=== PATIENT | female | born 1975 | race Caucasian/White ===

== ENCOUNTER 2020-07-05 16:15 | Outpatient (REF) | payer OTHER, SELFPAY | END 2020-07-05 16:16 | disposition home or self-care (01) | LOC: HO.LAB 16:15 | PROVIDERS: Visit Provider Nurse Practitioner Family | DX: J40 Bronchitis, not specified as acute or chronic (principal); Z20.822 Contact with and (suspected) exposure to COVID-19 | CPT/HCPCS: 36415; U0003 ==

== ENCOUNTER 2021-06-07 18:11 | Outpatient (REF) | payer OTHER, SELFPAY ==
[2021-06-07 19:06] LABS: Influenza A PCR NEGATIVE (Negative); Influenza B PCR NEGATIVE (Negative); Resp Syncy Virus RNA Qual PCR POSITIVE (Negative); SARS COV2 PCR INHOUSE NEGATIVE (Negative)
== END 2021-06-07 18:12 | disposition home or self-care (01) ==
LOC: HO.LNP 18:11
PROVIDERS: Visit Provider Internal Medicine
DX: Z20.822 Contact with and (suspected) exposure to COVID-19 (principal); R43.9 Unspecified disturbances of smell and taste
CPT/HCPCS: 0241U

== ENCOUNTER 2022-02-20 15:54 | Outpatient (REF) | payer OTHER, SELFPAY ==
[2022-02-26 00:37] LABS: HPV mRNA E6/E7 rflx Not Detected (Not Detected)
== END 2022-02-20 15:55 | disposition home or self-care (01) ==
LOC: HO.LNP 15:54
PROVIDERS: Visit Provider Obstetrics & Gynecology
DX: Z01.419 Encounter for gynecological examination (general) (routine) without abnormal findings (principal); N93.9 Abnormal uterine and vaginal bleeding, unspecified
CPT/HCPCS: 87624; 88142

== ENCOUNTER 2022-02-20 16:04 | Outpatient (REF) | payer OTHER, SELFPAY ==
[2022-02-20 16:59] LABS: Hematocrit 40.2 % (37.0-47.0); Hemoglobin 13.8 g/dl (12.0-16.0); Mean Corpuscular HGB Conc 34.3 g/dl (31.0-35.0); Mean Corpuscular Hemoglobin 30.5 pg (27.0-33.0); Mean Corpuscular Volume 88.7 fL (80.0-98.0); Mean Platelet Volume 10.1 fL (9.4-12.3); Platelet Count 285 X10*3/uL (160-400); Red Blood Count 4.53 X10*6/uL (4.20-5.50); Red Cell Distribution Width 12.9 % (11.0-16.0); White Blood Count 7.9 X10*3/uL (4.8-10.8)
[2022-02-20 17:47] LABS: HCG Quantitative < 2 mIU/mL; TSH reflex Free T4 1.25 uIU/mL (0.32-4.0)
[2022-02-21 11:48] LABS: CT PCR NOT DETECTED (Not Detect.); NG PCR NOT DETECTED (Not Detect.)
== END 2022-02-20 16:05 | disposition home or self-care (01) ==
LOC: HO.LAB 16:04
PROVIDERS: PCP Internal Medicine; Visit Provider Obstetrics & Gynecology
DX: Z01.419 Encounter for gynecological examination (general) (routine) without abnormal findings (principal); N93.9 Abnormal uterine and vaginal bleeding, unspecified; Z11.3 Encounter for screening for infections with a predominantly sexual mode of transmission; Z11.51 Encounter for screening for human papillomavirus (HPV)
CPT/HCPCS: 84443; 84702; 85027; 87491; 87591

== ENCOUNTER 2022-03-25 15:05 | Outpatient (REF) | payer OTHER, SELFPAY | END 2022-03-25 15:06 | disposition home or self-care (01) | LOC: HO.LNP 15:05 | PROVIDERS: PCP Internal Medicine; Visit Provider Obstetrics & Gynecology | DX: Z32.02 Encounter for pregnancy test, result negative (principal); N39.3 Stress incontinence (female) (male) | CPT/HCPCS: 58100; 81025; 88305 ==

== ENCOUNTER 2022-03-26 09:24 | Outpatient (REF) | payer OTHER, SELFPAY ==
--- NOTE | ~2022-03-26 | MM_ITS ---
EXAMINATION: MM SCREENING DIGITAL BREAST TOMOSYNTHESIS, BILATERAL CLINICAL INFORMATION: Screening. Asymptomatic. The lifetime risk of breast cancer based on the Tyrer-Cuzick Model is 15%. COMPARISON: Mammography: 08/26/2018, 06/11/2016, 01/12/2014 TECHNIQUE: Digital breast tomosynthesis is performed in both the craniocaudal and mediolateral oblique views along with computer-aided detection (CAD). Synthesized 2D images are generated from the tomosynthesis. FINDINGS: There are scattered areas of fibroglandular density (ACR BI-RADS breast composition Category b). There are no significant masses, abnormal calcifications, or other abnormalities. Parenchymal pattern is similar to prior studies. There is no developing density or architectural abnormality. The axilla and skin contours are unremarkable. No significant changes. MM/MM tomosynthesis screening BI IMPRESSION: No mammographic evidence of malignancy. ASSESSMENT: BI-RADS 1: Negative RECOMMENDATION: Routine annual mammography screening. This patient's information was entered into a reminder system with a target due date for their next mammogram.
== END 2022-03-26 09:25 | disposition home or self-care (01) ==
LOC: HO.MAMMO 09:24
PROVIDERS: Visit Provider Obstetrics & Gynecology
DX: Z12.31 Encounter for screening mammogram for malignant neoplasm of breast (principal)
CPT/HCPCS: 77063; 77067

== ENCOUNTER 2022-04-17 15:34 | Outpatient (REF) | payer OTHER, SELFPAY ==
--- NOTE | ~2022-04-17 | US_ITS ---
EXAMINATION: US PELVIS COMPLETE CLINICAL INFORMATION: Abnormal bleeding COMPARISON: None TECHNIQUE: Transabdominal and endovaginal imaging was performed. FINDINGS: The uterus is of normal size and echogenicity measuring 7.7 x 4.2 x 3.9 cm. A regular homogeneous endometrium is identified measuring 0.9 cm. Both ovaries are of normal size and echogenicity. The right measures 2.2 x 1.3 x 2.0 cm for a volume of 2.9 mL. The left measures 2.8 x 1.3 x 1.3 cm for a volume of 0.2 mL. Tiny punctate echogenic focus in the periphery of the right ovary may reflect a tiny calcification which could be vascular in nature. There is no pelvic free fluid. US/US pelvic and transvaginal IMPRESSION: Tiny punctate echogenic focus in the periphery of the right ovary may reflect a tiny calcification which could be vascular in nature. Otherwise unremarkable pelvic ultrasound.
== END 2022-04-17 15:35 | disposition home or self-care (01) ==
LOC: HO.US 15:34
PROVIDERS: Visit Provider Obstetrics & Gynecology
DX: N93.9 Abnormal uterine and vaginal bleeding, unspecified (principal)
CPT/HCPCS: 76830; 76856

== ENCOUNTER 2022-09-22 10:04 | Outpatient (REF) | payer OTHER, SELFPAY ==
--- NOTE | ~2022-09-22 | XR_ITS ---
EXAMINATION: XR ANKLE, RIGHT CLINICAL INFORMATION: Right ankle pain COMPARISON: None available. TECHNIQUE: AP, lateral, and mortise views of the right ankle. FINDINGS: The bones and soft tissues are normal. No fracture. Alignment is anatomic. Joint spaces are maintained. No joint effusion. XR/XR ankle RT min 3V IMPRESSION: Unremarkable right ankle
== END 2022-09-22 10:05 | disposition home or self-care (01) ==
LOC: HO.HOSX 10:04
PROVIDERS: Visit Provider Physician Assistant
DX: M25.571 Pain in right ankle and joints of right foot (principal)
CPT/HCPCS: 73610; 99202

== ENCOUNTER 2023-02-26 15:11 | Outpatient (REF) | payer OTHER, SELFPAY ==
[2023-02-27 16:02] LABS: BV Int Neg Control Negative (Negative); BV Int Pos Control Positive (Positive)
== END 2023-02-26 15:12 | disposition home or self-care (01) ==
LOC: HO.LNP 15:11
PROVIDERS: Visit Provider Obstetrics & Gynecology
DX: Z01.419 Encounter for gynecological examination (general) (routine) without abnormal findings (principal); N39.41 Urge incontinence; Z20.2 Contact with and (suspected) exposure to infections with a predominantly sexual mode of transmission
CPT/HCPCS: 87480; 87510; 87660

== ENCOUNTER 2023-02-26 15:11 | Outpatient (AMB) | payer OTHER, SELFPAY ==
--- NOTE | 2023-02-26 15:12 | MHC.OFFVIS ---
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: No Information Interpreted: non-clinical & clinical Sustainability Executive Director: Sustainability Executive Director Present (Chaya) Allergies acetaminophen [Tylenol-Codeine #3] Allergy (Unknown, Verified 02/26/23 15:15) vomiting codeine [Tylenol-Codeine #3] Allergy (Unknown, Verified 02/26/23 15:15) vomiting oxycodone [OXYCODONE] Adverse Reaction (Intermediate, Verified 02/26/23 15:15) VOMITING, feeling loopy From Tylenol-Codeine #3 Adverse Reaction (Intermediate, Uncoded 02/26/23 15:15) VOMITING Is last menstrual period known: Yes Last menstrual period: 02/06/23 Post menopausal: No HPI HPI Comments History of Present Illness Details Presenting for annual exam. Complaining of leakage of urine upon coughing, sneezing and lifting heavy object associated with urgency and urge incontinence . The patient is interested in STD screen Last Pap/HPV was negative in 03/13 Last Mammogram was BI-RADS 1 in 04/12 No previous screening colonoscopy PFSH Surgical History H/O bilateral salpingectomy Hx of section Family History Mother Asthma Father Fibromyalgia Prostate cancer Maternal Aunt Breast cancer Social History Household Members: None Housing: House Alcohol intake: current Alcohol intake frequency: holidays/special occasions only Patient Tobacco Use Status: Former Tobacco user e-Cigarette/Vaping Use: Never Used Current occupational status: employed Current occupation: [employer] Sexual orientation: Straight/Heterosexual Gender identity: Female Cognitive needs: No Hearing needs: No Vision needs: Yes Female Reproductive History Menstrual Age of Menarche: 15 Duration of menses: 6-7 days Date of last menstrual period: 02/06/23 control method: permanent sterilization Total pregnancies: 6 Full term: 4 Number of Living Children: 4 Ab induced: 2 Date of last pap smear: 02/21/22 Date of Mammogram: 03/26/22 Review of Systems Const All systems reviewed & are unremarkable except as noted in HPI and below Card Reports as per HPI Resp Reports as per HPI GI Reports as per HPI and Reports no additional complaints Reports as per HPI Physical Exam Vital Signs: Last Vital Signs BP 112/74 02/26/23 15:13 BMI result Body Mass Index 29.4 Const General: cooperative, healthy appearing and comfortable Chest Chest palpation & inspection: normal inspection of the chest and normal palpation of entire chest wall Breast/axilla inspection: normal inspection of the breasts and normal inspection of the axillae Breast/axilla palpation: normal palpation of the breasts, normal palpation of the axillae and no axillary lymphadenopathy Resp Effort & Inspection: normal respiratory effort Auscultation: clear to auscultation bilaterally Percussion: percussion normal Cardio Palpation: normal PMI Rate: regular rate Rhythm: regular rhythm Heart sounds: no murmurs and no rubs Peripheral pulses: Peripheral pulses 2+ throughout GI Inspection: Yes normal to inspection Palpation (GI): Soft to palpation, nontender, no guarding, not rigid and No hepatosplenomegaly present Percussion: Yes normal to percussion Auscultation: normal bowel sounds Rectal Exam - Female: deferred General: Yes bladder normal to palpation External Female Exam: No lesion Speculum Exam - Vagina: normal appearance of the vagina, normal palpation, normal vaginal discharge and not erythematous Speculum Exam - Cervix: normal appearance of the cervix and normal palpation Bimanual exam- vagina & uterus: normal bimanual exam, normal palpation, uterine size normal, bladder normal to palpation, consistency normal and normal palpation Bimanual Exam- Adnexa, other: normal adnexae, no masses and no tenderness Assessment & Plan Assessment & Plan (1) Well woman exam: Code(s): Z01.419 - Encounter for gynecological examination (general) (routine) without abnormal findings Plan: Cotesting not indicated this. Mammogram ordered for 04/13. Counseled the patient about the recommended dietary allowance of 1000 mg of Calcium & 600 IU of vitamin D. The patient was instructed to perform monthly self-breast exams and to schedule an annual exam in a year; All questions answered and the patient verbalized understanding. Instructed the patient to schedule annual exam in a year (2) Urine incontinence: Code(s): R32 - Unspecified urinary incontinence Plan: Discussed with the patient the different types of Urine incontinence, stress urinary incontinence, intrinsic sphincter deficiency, overactive bladder and its work up. We will refer to Urology. All questions answered, the patient verbalized understanding. (3) Screen for STD (sexually transmitted disease): Code(s): Z11.3 - Encounter for screening for infections with a predominantly sexual mode of transmission Plan: STD screening tests done includes: BV panel for trichomonas, GC/CT will send patient for serology std screening for HIV, RPR, Hep b s Ag, HepC Ab. Instructions given the patient to schedule a follow-up appointment for repeat serology screen in 6 months for possible false negatives. Orders: Orders Bacterial Vaginosis Panel Today Z01.419 - Encounter for gynecological examination (general) (routine) without abnormal findings Hepatitis B Surface Antigen Today Z20.2 - Contact with and (suspected) exposure to infections with a predominantly sexual mode of transmission Hepatitis C Antibody Today Z20.2 - Contact with and (suspected) exposure to infections with a predominantly sexual mode of transmission HIV Ab/Ag Today Z20.2 - Contact with and (suspected) exposure to infections with a predominantly sexual mode of transmission MM screening mammo BI Today Z12.31 - Encounter for screening mammogram for malignant neoplasm of breast CT NG by PCR Today Z01.419 - Encounter for gynecological examination (general) (routine) without abnormal findings Syphilis Screen Today Z20.2 - Contact with and (suspected) exposure to infections with a predominantly sexual mode of transmission Referrals Gastroenterology Referral Z12.11 - Encounter for screening for malignant neoplasm of colon Urology Referral R32 - Unspecified urinary incontinence Coding Level of Care Code Est Pt Prev Care 40-64y([id number]) Diagnoses Well woman exam Z01.419 Urine incontinence R32 Screen for STD (sexually transmitted disease) Z11.3
[2023-02-26 15:13] VITALS: BP 112/74; BMI 29.4
== END 2023-02-26 15:57 | disposition home or self-care (01) ==
PROVIDERS: Visit Provider Obstetrics & Gynecology
DX: Z01.419 Encounter for gynecological examination (general) (routine) without abnormal findings (principal); R32 Unspecified urinary incontinence; Z11.3 Encounter for screening for infections with a predominantly sexual mode of transmission
CPT/HCPCS: 99396

== ENCOUNTER 2023-02-26 16:10 | Outpatient (REF) | payer OTHER, SELFPAY ==
[2023-02-27 02:23] LABS: CT PCR NOT DETECTED (Not Detect.); NG PCR NOT DETECTED (Not Detect.)
[2023-02-27 04:32] LABS: Syphilis Screen Nonreactive (Nonreactive)
[2023-02-27 04:56] LABS: HBsAGNum1 0.35 S/CO (0.00-0.99); HIV AB/AG Nonreactive (Nonreactive); HIV Num 1 0.05 S/CO (0.00-0.99); Hepatitis B Surface Antigen Negative (Negative); ~HepC Num1 0.17 S/CO (0.00-0.79); ~Hepatitis C Antibody Nonreactive (Nonreactive)
== END 2023-02-26 16:11 | disposition home or self-care (01) ==
LOC: HO.LAB 16:10
PROVIDERS: Visit Provider Obstetrics & Gynecology
DX: Z01.419 Encounter for gynecological examination (general) (routine) without abnormal findings (principal); Z20.2 Contact with and (suspected) exposure to infections with a predominantly sexual mode of transmission
CPT/HCPCS: 0353U; 86780; 86803; 87340; 87389

== ENCOUNTER 2023-03-23 07:01 | Emergency (ER) | payer OTHER, SELFPAY ==
--- NOTE | ~2023-03-23 | CT_ITS ---
EXAMINATION: CT HEAD WITHOUT CONTRAST CLINICAL INFORMATION: Headache and sinus congestion. COMPARISON: 01/08/2015 TECHNIQUE: Contiguous axial imaging was performed from the skull base to vertex without intravenous administration of contrast. This CT examination was performed using dose optimization techniques as appropriate, variously including the following: *Automated exposure control *Adjustment of mA and/or kV according to patient size (this includes techniques or standardized protocols for targeted exams where dose is matched to indication/reason for exam; i.e. extremities or head) *Use of iterative reconstruction technique DLP: 667 mGy-cm FINDINGS: There is no evidence of acute intracranial hemorrhage or edematous territorial infarction. Madrigal-white matter differentiation is preserved. The ventricles are normal in morphology and size. No evidence for obstructive hydrocephalus. No mass effect or midline shift. No extra-axial fluid collections. The mastoid air cells and visualized paranasal sinuses are clear. CT/CT head/brain wo IV con IMPRESSION: No acute intracranial pathology.
[2023-03-23 07:46] VITALS: BP 140/76; PULSE 81; RESP 15; TEMP 36.4; O2SAT 98; BMI 30.1
--- NOTE | 2023-03-23 07:56 | ECG_ITS ---
Test Reason : r side chest disc Blood Pressure : / mmHG Vent. Rate : 076 BPM Atrial Rate : 076 BPM P-R Int : 140 ms QRS Dur : 074 ms QT Int : 380 ms P-R-T Axes : 060 034 018 degrees QTc Int : 427 ms Normal sinus rhythm Normal ECG No previous ECGs available Referred By: Generic ED Physician Electronically Signed By:BRYCE HENDERSON
[2023-03-23 08:27] LABS: MANUAL DIFF FLAG NO
[2023-03-23 08:30] LABS: Basophils Absolute Auto 0.1 X10*3/uL (0.0-0.2); Basophils Percent Auto 0.6 % (0-2); Eosinophils Absolute Auto 0.5 X10*3/uL (0.0-0.4); Eosinophils Percent Auto 5.5 % (0-4); Hematocrit 42.9 % (37.0-47.0); Hemoglobin 14.6 g/dl (12.0-16.0); Imm Gran Abs Auto 0.01 X10*3/uL (0.00-0.03); Imm Gran Pct Auto 0.1 % (0.0-0.4); Lymphocytes Absolute Auto 2.6 X10*3/uL (1.2-4.9); Lymphocytes Percent Auto 29.2 % (20-40); Mean Corpuscular Hemoglobin 30.2 pg (27.0-33.0); Mean Corpuscular Volume 88.6 fL (80.0-98.0); Mean Platelet Volume 9.6 fL (9.4-12.3); Monocytes Absolute Auto 0.7 X10*3/uL (0.1-1.2); Monocytes Percent Auto 7.3 % (2-11); Neutrophils Absolute Auto 5.2 x10*3/uL (2.0-8.3); Neutrophils Percent Auto 57.3 % (45-73); Platelet Count 309 X10*3/uL (160-400); Red Blood Count 4.84 X10*6/uL (4.20-5.50); Red Cell Distribution Width 12.8 % (11.0-16.0)
[2023-03-23 08:42] LABS: Anion Gap 13 (12-20); Blood Urea Nitrogen 17 mg/dL (9-16); Calcium 9.9 mg/dL (8.4-10.2); Carbon Dioxide 25 mmol/L (22-29); Chloride 106 mmol/L (96-108); Creatinine Clr Calc Pharmacy 102.6; Estimated Glomerular Filt Rate > 60; Glucose Random 105 mg/dL (60-115); IDNOW Serial# 08D9AD1C; Sodium 140 mmol/L (135-145); Strep A Nucleic Acid Negative (Negative)
[2023-03-23 08:46] LABS: COVID-19 Test Negative (Negative); IDNOW Serial# 55D5AD1C
[2023-03-23 08:51] LABS: IDNOW Serial# BCCEAD1C; Influenza A Negative (Negative); Influenza B2 Negative (Negative)
[2023-03-23 08:52] LABS: Troponin-I High Sensitivity < 2.7 ng/L (<3.5-17.0)
--- NOTE | 2023-03-23 09:03 | PC.NURSE ---
Patient reports x 1 month ago went to urgent care because she lost her voice and her ears hurt. Reports was told it was allergies and was given zyrtec and flonase. Reports bilteral lymph nodes hurt when she pushes on the. Reports new onset headache at 3:30am on the left side with left eye watering. Denies sob or chest pain
--- NOTE | 2023-03-23 09:13 | ED_ITS ---
HPI - General Adult General Chief complaint: General Medical Stated complaint: Headache L side Time Seen by Provider: 03/23/23 08:48 Source: patient Mode of arrival: ambulatory Limitations: no limitations History of Present Illness HPI narrative: Patient with sinus congestion for 1 month had been on flonase, now increasing ear pain and left sided headache Onset (ago): month(s) Severity: moderate Pain Consistency: constant Related Data Home Medications Medication Instructions Recorded Confirmed calcium carbonate 500 mg calcium 500 mg PO DAILY 02/20/22 08/19/22 (1,250 mg) chewable tablet (Calcium 500) cholecalciferol (vitamin D3) 25 25 mcg PO DAILY 02/20/22 08/19/22 mcg (1,000 unit) capsule Previous Rx's Medication Instructions Recorded fluticasone propionate 50 2 spray intranasal DAILY #16 grams 03/23/23 mcg/actuation nasal spray,suspension (Flonase Allergy Relief) naproxen 500 mg tablet (Naprosyn) 500 mg PO BID #20 tabs 03/23/23 Allergies Allergy/AdvReac Type Severity Reaction Status Date / Time acetaminophen Allergy Unknown vomiting Verified 02/26/23 15:15 [Tylenol-Codeine #3] codeine [Tylenol-Codeine #3] Allergy Unknown vomiting Verified 02/26/23 15:15 oxycodone [OXYCODONE] AdvReac Intermediate VOMITING, Verified 02/26/23 15:15 feeling loopy From Tylenol-Codeine #3 AdvReac Intermediate VOMITING Uncoded 02/26/23 15:15 Review of Systems 2 Review of Systems: Yes all other systems are reviewed and are negative Neurologic: Denies Sensory deficit (Neuro) PMFSH Past Medical History Surgical History H/O bilateral salpingectomy Hx of section Family History Family History Mother Asthma Father Fibromyalgia Prostate cancer Maternal Aunt Breast cancer Social History Social History Household Members: None Housing: House Alcohol intake: never Patient Tobacco Use Status: Former Tobacco user Smoked in Last 30 Days: No e-Cigarette/Vaping Use: Never Used Use of substances other than those prescribed or required for medical reasons: No Advance Directives: No Advance Directives Information Provided: Yes Current occupational status: employed Current occupation: [employer] Sexual orientation: Straight/Heterosexual Gender identity: Female Cognitive needs: No Hearing needs: No Vision needs: Yes Physical Exam ED Vital Signs: Vital Signs - 24 hr 03/23/23 07:46 Temperature 97.6 F Pulse Rate 81 Respiratory Rate 15 Blood Pressure 140/76 H Pulse Oximetry 98 Oxygen Delivery Method Room Air BMI result Body Mass Index 30.1 Const General: healthy appearing Nutritional Appearance: average body habitus Orientation/consciousness: oriented to person and patient oriented x3 Limitations: no limitations HENMT Other: bilateral TM effusions no erythema, no bulging Head: Yes normal to inspection General nose exam: Normal external nose present Mouth: Normal oral and palatal mucosa present and oropharynx normal Throat: Yes posterior oropharynx normal Eyes General: appearance normal, both eyes and all related structures Neck Neck: Yes normal visual inspection Chest Chest palpation & inspection: normal inspection of the chest Resp Auscultation: clear to auscultation bilaterally Cardio Jugular venous distension: no JVD Rate: regular rate Rhythm: regular rhythm Heart sounds: S1 normal heart sound present and S2 normal heart sound present GI Inspection: Yes normal to inspection Palpation (GI): Soft to palpation, nontender and No hepatosplenomegaly present Auscultation: normal bowel sounds General: Yes no CVA tenderness Back/Spine/Pelvis Back: no CVA tenderness Skin General skin exam: no rashes or lesions noted Neuro General: oriented to person and patient oriented x3 Cranial nerves: Yes CN's II-XII intact bilaterally Motor exam (neuro): 5/5 motor strength present throughout Sensory Exam: No Sensory deficit (Neuro) Extrem General: Yes normal to inspection Psych Appearance: grossly normal Course Reevaluation(s) Reevaluation #1: Head CT negative, no sinus fluid, will dc on continued flonase as both Tms with effusions Time: 10:45 Medications Administered Discontinued Medications Generic Name Dose Route Start Last Admin Trade Name Leroyq PRN Reason Stop Dose Admin Ketorolac Tromethamine 60 mg 03/23/23 09:56 03/23/23 10:00 Ketorolac Tromethamine 60 Mg/2 Ml Vial IM 03/23/23 09:57 60 mg ONCE ONE Administration Ondansetron HCl 4 mg 03/23/23 09:56 10/02/23 09:59 Ondansetron Odt 4 Mg Tab.Adrianadis TRANSLINGU 03/23/23 09:57 4 mg ONCE ONE Administration Medical Decision Making Differential Diagnosis Differential Diagnoses: The differential diagnosis associated with the presentation includes (CVA, Brain tumor, Migrain, sinusitis, allergic rhinitis) Admission/Observation Consideration of admission/observation: Escalation of care including admission/observation considered (upon arrival patient considered for admission) Lab Data 03/23/23 08:21 03/23/23 08:21 Labs: Lab Results 03/23/23 Range/Units 08:21 WBC 9.0 (4.8-10.8) X10*3/uL RBC 4.84 (4.20-5.50) X10*6/uL Hgb 14.6 (12.0-16.0) g/dl Hct 42.9 (37.0-47.0) % MCV 88.6 (80.0-98.0) fL MCH 30.2 (27.0-33.0) pg MCHC 34.0 (31.0-35.0) g/dl RDW 12.8 (11.0-16.0) % Plt Count 309 (160-400) X10*3/uL MPV 9.6 (9.4-12.3) fL Immature Gran % (Auto) 0.1 (0.0-0.4) % Neut % (Auto) 57.3 (45-73) % Lymph % (Auto) 29.2 (20-40) % Wilkin % (Auto) 7.3 (2-11) % Eos % (Auto) 5.5 H (0-4) % Baso % (Auto) 0.6 (0-2) % Lymph # (Auto) 2.6 (1.2-4.9) X10*3/uL Wilkin # (Auto) 0.7 (0.1-1.2) X10*3/uL Eos # (Auto) 0.5 H (0.0-0.4) X10*3/uL Baso # (Auto) 0.1 (0.0-0.2) X10*3/uL Abs Immat Gran (auto) 0.01 (0.00-0.03) X10*3/uL Absolute Neuts (auto) 5.2 (2.0-8.3) x10*3/uL Absolute Nucleated RBC 0.000 (0.0-0.012) X10*3/uL Nucleated RBC % (auto) 0.0 (0.0-0.2) /100WBC Sodium 140 (135-145) mmol/L Potassium 4.0 (3.3-5.1) mmol/L Chloride 106 (96-108) mmol/L Carbon Dioxide 25 (22-29) mmol/L Anion Gap 13 (12-20) BUN 17 H (9-16) mg/dL Creatinine 0.82 (0.5-1.4) mg/dL Estim Creat Clear Calc 102.6 Estimated GFR > 60 Random Glucose 105 (60-115) mg/dL Calcium 9.9 (8.4-10.2) mg/dL Troponin I High Sens < 2.7 (<3.5-17.0) ng/L COVID-19 (JOSÉ MIGUEL) Negative (Negative) COVID-19 Clin Com See Note Influenza Type A ([facility]) Negative (Negative) Influenza Type B ([place]) Negative (Negative) Influenza A & B Note See Note S. pyogenes GrpA [place] Negative (Negative) Independent Interpretation I performed an independent interpretation of an: CT Scan (no mass, no bleed, no sinus disease) Independent Historian Clinical information obtained from an independent historian. History obtained from or confirmed by: Parent (father) Prescription Management I considered prescription management with: Antibiotic (no evidence of acute sinusitis) Discharge Plan Discharge Clinical Impression: Headache Qualifiers: Headache type: unspecified Headache chronicity pattern: acute headache I ntractability: not intractable Qualified Code(s): R51.9 - Headache, unspecified Mucoid otitis media with effusion Qualifiers: Laterality: bilateral Qualified Code(s): H65.93 - Unspecified nonsuppurative otitis media, bilateral Patient Disposition: Home, Self-Care Instructions: Acute Headache (DC), Serous Otitis Media (ED) Prescriptions: New naproxen [Naprosyn] 500 mg tablet 500 mg PO BID Qty: 20 0RF fluticasone propionate [Flonase Allergy Relief] 50 mcg/actuation spray,suspension 2 spray intranasal DAILY Qty: 16 0RF Rx Instructions: administer into each nostril No Action cholecalciferol (vitamin D3) 25 mcg (1,000 unit) capsule 25 mcg PO DAILY calcium carbonate [Calcium 500] 500 mg calcium (1,250 mg) tablet,chewable 500 mg PO DAILY Referrals: Lala Banks MD [Primary Care Provider] - 1 week Derick Sarmiento [Physician] - 1 week
--- NOTE | 2023-03-23 09:49 | PC.NURSE ---
x2 attempts to start IV unsuccessful at this time
[2023-03-23] MEDS: Ondansetron ODT 4 MG TAB.RAPDIS TRANSLINGU (09:59)
[2023-03-23] MEDS: Ketorolac Tromethamine 60 MG/2 ML VIAL IM (10:00)
--- NOTE | 2023-03-23 10:40 | PC.NURSE ---
Resting comfortably in bed, breathing even and unlabored
--- NOTE | 2023-03-23 11:21 | PC.NURSE ---
Discharge plan reviewed with patient who verbalized understanding
== END 2023-03-23 11:21 | disposition home or self-care (01) ==
PROVIDERS: Emergency Provider Emergency Medicine; PCP Internal Medicine
DX: H65.93 Unspecified nonsuppurative otitis media, bilateral (principal); R51.9 Headache, unspecified; Z20.822 Contact with and (suspected) exposure to COVID-19; Z20.828 Contact with and (suspected) exposure to other viral communicable diseases; Z87.891 Personal history of nicotine dependence; Z79.899 Other long term (current) drug therapy
CPT/HCPCS: 70450; 80048; 84484; 85025; 87502; 87635; 87651; 93005; 96372; 99284; J1885

== ENCOUNTER 2023-04-27 15:10 | Outpatient (REF) | payer OTHER, SELFPAY ==
--- NOTE | ~2023-04-27 | MM_ITS ---
EXAMINATION: MM SCREENING DIGITAL BREAST TOMOSYNTHESIS, BILATERAL CLINICAL INFORMATION: Screening. Asymptomatic. COMPARISON: Mammography: This study is compared with prior exams dating back to 2016. TECHNIQUE: Digital breast tomosynthesis is performed in both the craniocaudal and mediolateral oblique views along with computer-aided detection (CAD). Synthesized 2D images are generated from the tomosynthesis. FINDINGS: There are scattered areas of fibroglandular density (ACR BI-RADS breast composition Category b). There are no significant masses, abnormal calcifications, or other abnormalities. MM/MM tomosynthesis screening BI IMPRESSION: No mammographic evidence of malignancy. ASSESSMENT: BI-RADS BI-RADS 1 - Negative RECOMMENDATION: Routine annual mammography screening. 1 year F/U This examination should not preclude the clinical evaluation of a suspicious palpable abnormality. This patient's information was entered into a reminder system with a target due date for their next mammogram.
== END 2023-04-27 15:11 | disposition home or self-care (01) ==
LOC: HO.MAMMO 15:10
PROVIDERS: PCP Internal Medicine; Visit Provider Obstetrics & Gynecology
DX: Z12.31 Encounter for screening mammogram for malignant neoplasm of breast (principal)
CPT/HCPCS: 77063; 77067

== ENCOUNTER → 2023-04-27 15:15 | Outpatient (BNV) | payer OTHER, SELFPAY | PROVIDERS: PCP Internal Medicine; Visit Provider Radiology Diagnostic Radiology | DX: Z12.31 Encounter for screening mammogram for malignant neoplasm of breast (principal) | CPT/HCPCS: 77063; 77067 ==

== ENCOUNTER 2023-05-04 14:34 | Outpatient (AMB) | payer OTHER, SELFPAY ==
--- NOTE | 2023-05-04 14:38 | A.OFFVIS_ITS ---
Intake Vital Signs 05/04/23 14:41 Height 5 ft 9 in Weight 193 lb BMI 28.5 BP 122/62 Blood Pressure Location Lt brachial Position Sitting Pulse 86 Intake Visit Reasons: Colonoscopy Screening Intake Note: Patient 1st pre colonoscopy screening. Patient denies any GI issues. Registry Nurse Required: No Accompanied by: Self / Same As Patient Allergies acetaminophen [Tylenol-Codeine #3] Allergy (Unknown, Verified 05/04/23 14:37) vomiting codeine [Tylenol-Codeine #3] Allergy (Unknown, Verified 05/04/23 14:37) vomiting oxycodone [OXYCODONE] Adverse Reaction (Intermediate, Verified 05/04/23 14:37) VOMITING, feeling loopy From Tylenol-Codeine #3 Adverse Reaction (Intermediate, Uncoded 02/26/23 15:15) VOMITING Medication List - Last Reconciled 05/04/23 by Nichelle Mandujano PA-C calcium carbonate (Calcium 500) 500 mg PO DAILY cholecalciferol (vitamin D3) 25 mcg PO DAILY fluticasone propionate 50 mcg/actuation (Flonase Allergy Relief) 2 sprays intranasal DAILY naproxen (Naprosyn) 500 mg PO BID HPI HPI Comments History of Present Illness Details 48-year-old female referred for index sc reening colonoscopy She has no general complaints external hemorrhoid Has a normal bowel pattern Good appetite No nausea, vomiting, hematemesis, hematochezia fever chills No respiratory or cardiac issues PFSH Surgical History H/O bilateral salpingectomy Hx of section Family History Mother Asthma Father Fibromyalgia Prostate cancer Maternal Aunt Breast cancer Social History Household Members: None Housing: House Alcohol intake: never Patient Tobacco Use Status: Former Tobacco user e-Cigarette/Vaping Use: Never Used Current occupational status: employed Current occupation: [employer] Sexual orientation: Straight/Heterosexual Gender identity: Female Cognitive needs: No Hearing needs: No Vision needs: Yes Female Reproductive History Menstrual Age of Menarche: 15 Review of Systems Const Details: All systems reviewed and are negative No chest pain, shortness of breath abdominal pain fever or chills All systems reviewed & are unremarkable except as noted in HPI and below Card Denies chest pain and Denies dyspnea Resp Denies dyspnea Physical Exam Vital Signs: Last Vital Signs Pulse 86 05/04/23 14:41 BP 122/62 05/04/23 14:41 BMI result Body Mass Index 28.5 Const General: cooperative, healthy appearing, comfortable and no acute distress Orientation/consciousness: patient oriented x3 Limitations: no limitations Eyes Sclerae: sclerae normal Resp Effort & Inspection: normal respiratory effort and able to speak in complete sentences Auscultation: clear to auscultation bilaterally, no rales, no rhonchi and no wheezes Cardio Rate: regular rate Rhythm: regular rhythm Heart sounds: S1 normal heart sound present and S2 normal heart sound present GI Palpation (GI): Soft to palpation and nontender Auscultation: normal bowel sounds Skin General skin exam: no rashes or lesions noted Neuro General: patient oriented x3 Extrem General: Yes full ROM Psych Appearance: grossly normal and well kempt Mental Status: mental status grossly normal Speech and movement: Normal speech and movement present and Clear speech present Affect: normal affect and Labile affect present Attitude: cooperative Thought process: Normal thought process present Thought content: Normal thought content present Assessment & Plan Assessment & Plan (1) Encounter for screening colonoscopy: Comment: A very pleasant 48-year-old female referred for index screening colonoscopy, no GI complaints, no family history of GI cancer reviewed alternatives per her request- for cologuard Code(s): Z12.11 - Encounter for screening for malignant neoplasm of colon Plan: cologuard-discussed false neg/ positives- Aware not gold standard- If positive will recommend colonoscopy- Patient Instructions: Pleasant 48 year female referred for index screening colonoscopy, requested to discuss alternatives. She has no GI concerns, no known family history of GI can She understands gold standard is colonoscopy. Discuss Cologuard to include follows positives and false negatives Cologuard, If positive recommend colonoscopy Patient agrees to call 2 weeks after submitting sample for results Encouraged to call with questions or concerns, Appreciate the opportunity assist in the care the patient Coding Level of Care Code New Pt Level 3 (48888) Diagnoses Encounter for screening colonoscopy Z12.11 Time Spent (min) 30
[2023-05-04 14:41] VITALS: BP 122/62; PULSE 86; BMI 28.5
== END 2023-05-04 15:36 | disposition home or self-care (01) ==
PROVIDERS: PCP Internal Medicine; Visit Provider Physician Assistant
DX: Z12.11 Encounter for screening for malignant neoplasm of colon (principal); Z01.818 Encounter for other preprocedural examination
CPT/HCPCS: 99203

== ENCOUNTER → 2023-05-04 14:34 | Outpatient (BNVA) | payer OTHER, SELFPAY | PROVIDERS: PCP Internal Medicine; Visit Provider Physician Assistant ==

== ENCOUNTER 2023-05-25 14:04 | Outpatient (AMB) | payer OTHER, SELFPAY ==
--- NOTE | 2023-05-25 14:26 | MHC.OFFVIS ---
Intake Intake Visit Reasons: Unspecified urinary incontinence Intake Note: New Patient presents for initial visit for incontinence Urology Medications: none Blood Thinner: none PVR: 26ml's Line Crew Supervisor Required: No Accompanied by: Self / Same As Patient Allergies acetaminophen [Tylenol-Codeine #3] Allergy (Unknown, Verified 05/26/23 01:17) vomiting codeine [Tylenol-Codeine #3] Allergy (Unknown, Verified 05/26/23 01:17) vomiting oxycodone [OXYCODONE] Adverse Reaction (Intermediate, Verified 05/26/23 01:17) VOMITING, feeling loopy From Tylenol-Codeine #3 Adverse Reaction (Intermediate, Uncoded 05/26/23 01:17) VOMITING Medication List - Last Reconciled 05/26/23 by PAUL Adler-YASH naproxen (Naprosyn) 500 mg PO BID HPI HPI Comments History of Present Illness Details Ramona is a very pleasant 48-year-old female patient of . She presents to the office today as a new patient for stress incontinence. In discussion with the patient today she reports to be doing and feeling well. She reports noting ongoing stress incontinence over the last few months. When asked she reports having had 4 pregnancies 3 vaginal births and 1 via . She reports 1 of her children were approximately 10 lb or otherwise other 3 children were average size at . She does report long labors. She reports working at [employer] and feels at times while at work and busy she has urinary leakage. She reports using 1 Justina pads per day. She discusses at times well at work in it is busy she only uses bathroom with sense of urgency. Discussed at length importance of utilizing bathroom every 2-3 hours and not with only sense of urgency. Discussed pelvic floor therapy and or trial of medication. She denies nocturia, hematuria, dysuria, foul smelling urine, changes to urinary stream, flank pain, fever, and or chills. In office urinalysis results reviewed with the patient today. PVR 26mls. She otherwise offers no other issues or concerns at this time. [facility] Surgical History H/O bilateral salpingectomy Hx of section Family History Mother Asthma Father Fibromyalgia Prostate cancer Maternal Aunt Breast cancer Social History Household Members: None Housing: House Alcohol intake: never Patient Tobacco Use Status: Former Tobacco user e-Cigarette/Vaping Use: Never Used Current occupational status: employed Current occupation: [employer] Sexual orientation: Straight/Heterosexual Gender identity: Female Cognitive needs: No Hearing needs: No Vision needs: Yes Female Reproductive History Menstrual Age of Menarche: 15 Review of Systems Const All systems reviewed & are unremarkable except as noted in HPI and below Physical Exam Const General: cooperative, healthy appearing, comfortable, no acute distress, well developed, alert and awake Orientation/consciousness: patient oriented x3 Limitations: no limitations HEENT Head: Yes normal to inspection, Yes normocephalic and Yes atraumatic Ears: hearing grossly normal bilaterally Eyes General: appearance normal, both eyes and all related structures Neck Neck: Yes normal visual inspection and Yes trachea midline Chest Chest palpation & inspection: normal inspection of the chest Resp Effort & Inspection: normal respiratory effort and able to speak in complete sentences Cardio Rate: regular rate GI Inspection: Yes normal to inspection General: Yes no CVA tenderness Back/Spine/Pelvis Back: no CVA tenderness Skin General skin exam: no rashes or lesions noted Neuro General: patient oriented x3 Extrem General: Yes normal to inspection Psych Appearance: grossly normal and well kempt Mental Status: mental status grossly normal Speech and movement: Normal speech and movement present and Clear speech present Affect: normal affect Attitude: cooperative Thought process: Normal thought process present Thought content: Normal thought content present Insight: Good insight present (Psych) Judgement: Good judgement present (Psych) Office Procedures Post Void Residual Post Residual Void Post Void Residual (PVR): 26 30525-Theh Void Residual by ultrasound Results AMB Urinalysis, Automated UA Leukoctes 0 Trisha/uL Last Edit by Yefri Dahl on 05/25/23 14:41 UA Nitrite Negative Last Edit by Yefri Dahl on 05/25/23 14:41 UA Urobilinogen 0.2 mg/dL Last Edit by Yefri Dahl on 05/25/23 14:41 UA Protein 0 mg/dL Last Edit by Yefri Dahl on 05/25/23 14:41 UA pH 6.0 Last Edit by Yefri Dahl on 05/25/23 14:41 UA Blood 0 Silvino/uL Last Edit by Yefri Dahl on 05/25/23 14:41 UA Specific [place] 1.015 Last Edit by Yefri Dahl on 05/25/23 14:41 UA Ketone Negative Last Edit by Yefri Dahl on 05/25/23 14:41 UA Bilirubin 0 mg/dL Last Edit by Yefri Dahl on 05/25/23 14:41 UA Glucose 0 mg/dL Last Edit by Yefri Dahl on 05/25/23 14:41 Results Reviewed Results Reviewed: Laboratory Last Values Urine pH (Auto) 6.0 05/25/23 14:36 Specific [place] (Auto) 1.015 05/25/23 14:36 Urine Protein (Auto) 0 mg/dL 05/25/23 14:36 Glucose (UA)(Auto) 0 mg/dL 05/25/23 14:36 Urine Ketones (Auto) Negative 05/25/23 14:36 Urine Blood (Auto) 0 Silvino/uL 05/25/23 14:36 Urine Nitrite (Auto) Negative 05/25/23 14:36 Urine Bilirubin (Auto) 0 mg/dL 05/25/23 14:36 Urine Urobilinogen (Auto) 0.2 mg/dL 05/25/23 14:36 Leukocyte Esterase (Auto) 0 Trisha/uL 05/25/23 14:36 Assessment & Plan Assessment & Plan (1) Stress incontinence: Code(s): N39.3 - Stress incontinence (female) (male) Plan In office urinalysis results reviewed with the patient today; as noted above. PVR 26 mL. Discussed at length pelvic floor therapy; information provided Discussed vaginal weights; information provided Discussed, educated, and stressed the importance of voiding regularly and not only with sense of urgency. Discussed scheduled/timed voiding Discussed, educated, and stressed the importance of drinking plenty of fluid daily. Discussed at length potential causes for stress incontinence. Discussed possible near future retroperitoneal ultrasound for further assessment evaluation, in office cystoscopy, and or urodynamics Follow-up in 3 months with PVR; or sooner with any issues, concerns, and or questions. Orders: Orders AMB Post Void Residual by ultrasound 05/25/23 R32 - Unspecified urinary incontinence AMB Urinalysis Automated 05/25/23 Z13.9 - Encounter for screening, unspecified Patient Instructions: The patient had an opportunity to ask questions regarding the treatment plan. All questions were answered. Physical exam, labs, and imaging were discussed and reviewed in detail. As well as risks, benefits, and discussion of treatment choices. No major barriers to understanding were identified. The patient expressed understanding and agreement with the above treatment plan. The patient was made aware they should contact our office by phone for worsening of their current condition, the appearance of new symptoms, or with any questions or concerns. Compliance is encouraged with any medications and follow up testing that is ordered. It is a privilege to be allowed the opportunity to participate in? your urological care.? Again, if you have any questions or concerns If you have any questions or concerns please do not hesitate to contact me. The office is [phone]. This note is constructed using voice recognition software. While every effort has been made to ensure accuracy information systems security analyst errors may have been included. Yours sincerely, LAMONT Adler Coding Level of Care Code New Pt Level 3 (84276) Diagnoses Stress incontinence N39.3 CPT Codes Post Residual Void - PVR CPT Code: 83454-Vwyi Void Residual by ultrasound ([id number])
== END 2023-05-25 15:33 | disposition home or self-care (01) ==
PROVIDERS: PCP Internal Medicine; Visit Provider Nurse Practitioner Family
DX: N39.3 Stress incontinence (female) (male) (principal)
CPT/HCPCS: 99203

== ENCOUNTER → 2023-05-25 14:04 | Outpatient (BNVA) | payer OTHER, SELFPAY | PROVIDERS: PCP Internal Medicine; Visit Provider Nurse Practitioner Family | DX: N39.3 Stress incontinence (female) (male) (principal) | CPT/HCPCS: 51798; 81003 ==

== ENCOUNTER 2023-09-15 14:30 | Outpatient (AMB) | payer OTHER, SELFPAY ==
[2023-09-15 14:37] VITALS: BP 126/84; PULSE 79; O2SAT 99; BMI 28.4
--- NOTE | 2023-09-15 14:37 | MHC.PC.OV ---
Vital Signs 09/15/23 14:37 Height 5 ft 9 in Weight 192 lb 6 oz BMI 28.4 BP 126/84 Blood Pressure Location Lt brachial Position Sitting Pulse 79 Pulse Source Pulse Oximeter Pulse Oximetry (%) 99 Oxygen Delivery Method Room Air Intake Visit Reasons: Annual PE rescheduled from 08/25/23 Allergies acetaminophen [Tylenol-Codeine #3] Allergy (Unknown, Verified 09/15/23 14:41) vomiting codeine [Tylenol-Codeine #3] Allergy (Unknown, Verified 09/15/23 14:41) vomiting oxycodone [OXYCODONE] Adverse Reaction (Intermediate, Verified 09/15/23 14:41) VOMITING, feeling loopy From Tylenol-Codeine #3 Adverse Reaction (Intermediate, Uncoded 05/26/23 01:17) VOMITING Tobacco use date assessed: 09/15/23 Dental Screening Dental Screen Date: 09/15/23 Did you have a dental visit in the last 12 months?: Yes Did you have a dental problem in the last 6 months where you did not have access to dental care?: No Was dental information given to patient?: Patient has dentist HPI Annual PE rescheduled from 08/25/23 HPI Details PE Patient is taking medication She is seeing Dr. Thomas for breast exam and Pap smears Trying to lose weight BMI is 28.4 Last time she had labs was end of last year, eosinophils were elevated Lab order placed to be done fasting Vital signs are stable Return in 1 year for physical exam [facility] Surgical History H/O bilateral salpingectomy Hx of section Family History Mother Asthma Father Fibromyalgia Prostate cancer Maternal Aunt Breast cancer Social History Household Members: None Housing: House Alcohol intake: never Patient Tobacco Use Status: Former Tobacco user e-Cigarette/Vaping Use: Never Used Current occupational status: employed Current occupation: [employer] Sexual orientation: Straight/Heterosexual Gender identity: Female Cognitive needs: No Hearing needs: No Vision needs: Yes Female Reproductive History Menstrual Age of Menarche: 15 Questionnaire Thrive Questionnaire Date Thrive assessed: 08/19/22 AUDIT C Alcohol Use Questionnaire (AUDIT-C) 1. How often do you have a drink containing alcohol?: Monthly or less 2. How many drinks containing alcohol do you have on a typical day when you are drinking?: 1 or 2 3. How often do you have six or more drinks on one occasion?: Never Total Score: 1 Score Reviewed/Action Taken: Yes OTTO-7 AMB Questionnaire OTTO-7 Date OTTO - 7 assessed: 08/19/22 Source: Developed by Drs. Leo Burdick, Autumn King, Eliseo Bryant and colleagues, with an educational christina from [employer]. Review of Systems Const Denies chills, Denies fever(s) and Denies headache(s) Eyes Denies blurry vision ENT Denies headache(s), Denies nasal discharge, Denies nasal obstruction, Denies odynophagia and Denies sinus pain Card Denies chest pain at rest and Denies chest pain with activity Resp Denies cough and Denies hemoptysis GI Denies diarrhea, Denies odynophagia, Denies vomiting and Denies hematemesis Reports as per HPI Musc Denies abnormal gait Skin/Breast Reports as per HPI Neuro Denies Neuro-related abnormal movements, Denies Abnormal speech present, Denies abnormal gait, Denies headache(s) and Denies Sensory deficit (Neuro) Psych Denies mood swings and Denies paranoia Endo Reports as per HPI Naveed/Lymph Reports as per HPI Aller/Immun Reports as per HPI Physical exam (Primary Care) Vital Signs: Last Vital Signs Pulse 79 09/15/23 14:37 BP 126/84 09/15/23 14:37 Pulse Ox 99 09/15/23 14:37 Oxygen Delivery Method Room Air 09/15/23 14:37 BMI result Body Mass Index 28.4 Tobacco/Smoking Status: Tobacco use Status Tobacco use date assessed 09/15/23 09/15/23 14:42 Patient Tobacco Use Status Former Tobacco user 09/15/23 14:42 e-Cigarette/Vaping Use Never Used 09/15/23 14:42 Thrive Assessment: Date of Thrive Assessment Date Thrive assessed 08/19/22 09/15/23 14:42 Const General: cooperative, comfortable and no acute distress Orientation/consciousness: patient oriented x3 HENMT Head: Yes normocephalic and Yes atraumatic Eyes General: appearance normal, both eyes and all related structures Pupils: Equal, round and reactive pupils present EOM: EOMs intact bilaterally Neck Neck: Yes supple and No lymphadenopathy Thyroid: Thyroid normal Lymphatic: no lymphadenopathy noted Resp Effort & Inspection: normal respiratory effort and able to speak in complete sentences Auscultation: clear to auscultation bilaterally Cardio Heart sounds: S1 normal heart sound present and S2 normal heart sound present GI Palpation (GI): Soft to palpation and nontender Auscultation: normal bowel sounds General: Yes no CVA tenderness Back/Spine/Pelvis Back: no CVA tenderness Skin General skin exam: elasticity normal and turgor normal Neuro General: patient oriented x3 and gait normal Cranial nerves: Yes Equal, round and reactive pupils present Speech: No Abnormal speech present Sensory Exam: No Sensory deficit (Neuro) Coordination: tandem gait normal and Romberg test negative Extrem General: Yes normal exam except as noted and No edema Assessment and Plan Assessment & Plan (1) Encounter for general adult medical examination with abnormal findings: Code(s): Z00.01 - Encounter for general adult medical examination with abnormal findings (2) Eosinophilia: Code(s): D72.10 - Eosinophilia, unspecified Qualifiers: Eosinophilia type: unspecified eosinophilia Qualified Code(s): D72.10 - Eosinophilia, unspecified (3) Dysfunctional uterine bleeding: Code(s): N93.8 - Other specified abnormal uterine and vaginal bleeding (4) Overweight (BMI 25.0-29.9): Code(s): E66.3 - Overweight Plan PE Patient is taking medication She is seeing Dr. Thomas for breast exam and Pap smears Going premenopausal symptoms with irregularity in menstrual cycles Trying to lose weight BMI is 28.4 Last time she had labs was end of last year, eosinophils were elevated Lab order placed to be done fasting Vital signs are stable Return in 1 year for physical exam Orders: Orders Lipid Panel Today D72.10 - Eosinophilia, unspecified, E66.3 - Overweight, N93.8 - Other specified abnormal uterine and vaginal bleeding, Z00.01 - Encounter for general adult medical examination with abnormal findings Complete Blood Count Auto Diff Today D72.10 - Eosinophilia, unspecified, E66.3 - Overweight, N93.8 - Other specified abnormal uterine and vaginal bleeding, Z00.01 - Encounter for general adult medical examination with abnormal findings Comprehensive [place]. Panel Fast Today D72.10 - Eosinophilia, unspecified, E66.3 - Overweight, N93.8 - Other specified abnormal uterine and vaginal bleeding, Z00.01 - Encounter for general adult medical examination with abnormal findings Coding Level of Care Code Est Pt [facility] Care 40-64y(93720) Diagnoses Encounter for general adult medical examination with abnormal findings Z00.01 Eosinophilia, unspecified type D72.10 Eosinophilia type: unspecified eosinophilia Dysfunctional uterine bleeding N93.8 Overweight (BMI 25.0-29.9) E66.3
== END 2023-09-15 14:58 | disposition home or self-care (01) ==
PROVIDERS: PCP Internal Medicine; Visit Provider Internal Medicine
DX: Z00.01 Encounter for general adult medical examination with abnormal findings (principal); D72.10 Eosinophilia, unspecified; N93.8 Other specified abnormal uterine and vaginal bleeding; E66.3 Overweight
CPT/HCPCS: 99396

== ENCOUNTER 2023-11-30 14:00 | Outpatient (RCR) | payer OTHER, SELFPAY | END 2023-11-30 15:01 | disposition home or self-care (01) | LOC: HO.PTCHIC 14:00 | PROVIDERS: PCP Internal Medicine; Visit Provider Orthopaedic Surgery | DX: M79.18 Myalgia, other site (principal) | CPT/HCPCS: 97014; 97110; 97140; 97162 ==

== ENCOUNTER 2024-03-16 13:09 | Outpatient (AMB) | payer OTHER, SELFPAY ==
[2024-03-16 13:15] VITALS: BP 126/88; PULSE 68; O2SAT 99; BMI 29.0
--- NOTE | 2024-03-16 13:15 | A.OFFPC_ITS ---
Vital Signs 03/16/24 13:15 Height 5 ft 9 in Weight 196 lb 4 oz BMI 29.0 BP 126/88 Blood Pressure Location Lt brachial Position Sitting Pulse 68 Pulse Source Pulse Oximeter Pulse Oximetry (%) 99 Oxygen Delivery Method Room Air Intake Visit Reasons: Vertigo Allergies acetaminophen [Tylenol-Codeine #3] Allergy (Unknown, Verified 03/16/24 13:15) vomiting codeine [Tylenol-Codeine #3] Allergy (Unknown, Verified 03/16/24 13:15) vomiting oxycodone [OXYCODONE] Adverse Reaction (Intermediate, Verified 03/16/24 13:15) VOMITING, feeling loopy From Tylenol-Codeine #3 Adverse Reaction (Intermediate, Uncoded 05/26/23 01:17) VOMITING Medication List - Last Reconciled 03/16/24 by Lala Banks MD No Known Home Meds Tobacco use date assessed: 03/16/24 Dental Screening Dental Screen Date: 03/16/24 Did you have a dental visit in the last 12 months?: Yes Did you have a dental problem in the last 6 months where you did not have access to dental care?: No Was dental information given to patient?: Patient has dentist HPI Vertigo HPI Details Patient is a 48-year-old female came in today to talk about vertigo Patient says that she has a history of vertigo when she was young and recently started having vertigo again off and on with the movement She has not taken any medication yet for that I am sending meclizine with the patient she may take 1 as needed up to 2 times a day She also have allergies, Flonase nasal spray did help her I have sent a refill and she is also to start Zyrtec 10 mg [id number] daily. [facility] Surgical History H/O bilateral salpingectomy Hx of section Family History Mother Asthma Father Fibromyalgia Prostate cancer Maternal Aunt Breast cancer Social History Household Members: None Housing: House Alcohol intake: never Patient Tobacco Use Status: Former Tobacco user e-Cigarette/Vaping Use: Never Used Current occupational status: employed Current occupation: [employer] Sexual orientation: Straight/Heterosexual Gender identity: Female Cognitive needs: No Hearing needs: No Vision needs: Yes Female Reproductive History Menstrual Age of Menarche: 15 Questionnaire PHQ-9 Over the last 2 weeks, how often have you been bothered by any of the following problems? 1. Little interest or pleasure in doing things: not at all 2. Feeling down, depressed, or hopeless: not at all 3. Trouble falling or staying asleep, or sleeping too much: not at all 4. Feeling tired or having little energy: not at all 5. Poor appetite or overeating: not at all 6. Feeling bad about yourself - or that you are a failure or have let yourself or your family down: not at all 7. Trouble concentrating on things, such as reading the newspaper or watching television: not at all 8. Moving or speaking so slowly that other people could have noticed. Or the opposite - being so fidgety or restless that you have been moving around a lot more than usual: not at all 9. Thoughts that you would be better off or of hurting yourself in some way: not at all Total score: 0 Depression Screening Interpretation: Negative Depression Screening Done: Yes 53960 - PHQ-9 Billing: Yes Source: Developed by Drs. Leo Burdick, Autumn King, Eliseo Bryant and colleagues, with an educational christina from [employer]. Thrive Questionnaire Date Thrive assessed: 03/16/24 I am a: Patient What is your living situation today?: I have a steady place to live Within the past 12 months, did the food you bought not last and you didn't have the money to get more?: Never true Within the past 12 months, did you worry whether your food would run out before you got money to buy more?: Never true Do you have trouble paying for medicines?: No Do you have trouble getting transportation to medical appointments?: No Do you have trouble paying your heating and electricity bill?: No Do you have trouble taking care of your child, family member or friend?: No Do you have trouble with day-to-day activities such as bathing, preparing meals, shopping, managing finances, etc.?: No Are you currently unemployed and looking for a job?: No Are you interested in more education?: No Please select the resources that you would like help with: None Currently or been in a relationship where the following occur: No concerns reported THRIVE Score: 0 AUDIT C Alcohol Use Questionnaire (AUDIT-C) 1. How often do you have a drink containing alcohol?: Never 3. How often do you have six or more drinks on one occasion?: Never Total Score: 0 Score Reviewed/Action Taken: Yes OTTO-7 AMB Questionnaire OTTO-7 Date OTTO - 7 assessed: 03/16/24 Feeling nervous, anxious, or on edge: 0 = Not at all Not being able to stop or control worryin = Not at all Worrying too much about different things: 0 = Not at all Trouble relaxin = Not at all Being so restless that it is hard to sit still: 0 = Not at all Becoming easily annoyed or irritable: 0 = Not at all Feeling afraid as if something awful might happen: 0 = Not at all Total OTTO-7 score (0-4 normal; 5-9 mild; 10-14 moderate; 15-21 severe): 0 Source: Developed by Drs. Leo Burdick, Autumn King, Eliseo Bryant and colleagues, with an educational christina from [employer]. OTTO-7 Assessment Billing OTTO-7 Assessment Tool: OTTO-7 Assessment 33676 Review of Systems Const Denies chills and Denies fever(s) ENT Denies epistaxis Card Denies chest pain Resp Denies hemoptysis GI Denies diarrhea and Denies nausea Skin/Breast Denies rash Neuro Reports no additional complaints Psych Reports no additional complaints Endo Reports no additional complaints Physical exam (Primary Care) Vital Signs: Last Vital Signs Pulse 68 03/16/24 13:15 BP 126/88 03/16/24 13:15 Pulse Ox 99 03/16/24 13:15 Oxygen Delivery Method Room Air 03/16/24 13:15 BMI result Body Mass Index 29.0 Tobacco/Smoking Status: Tobacco use Status Tobacco use date assessed 03/16/24 03/16/24 13:17 Patient Tobacco Use Status Former Tobacco user 03/16/24 13:17 e-Cigarette/Vaping Use Never Used 03/16/24 13:17 PHQ-9: PHQ-9 Score PHQ-9: Total score 0 03/16/24 14:07 Depression Screening Interpretation: Negative Thrive Assessment: Date of Thrive Assessment Date Thrive assessed 03/16/24 03/16/24 13:20 Currently or been in a relationship where the following occur: No concerns reported Const General: cooperative, comfortable and no acute distress Orientation/consciousness: patient oriented x3 HENMT Other: Ear exam is within normal limit Head: Yes normocephalic Eyes General: appearance normal, both eyes and all related structures Neck Neck: Yes supple Resp Effort & Inspection: normal respiratory effort, no cough and no stridor Cardio Rhythm: regular rhythm Heart sounds: S1 normal heart sound present and S2 normal heart sound present Skin General skin exam: turgor normal Neuro General: patient oriented x3, tone normal and moves all extremities Extrem Right lower extremity: no edema Left lower extremity: no edema Assessment and Plan Assessment & Plan (1) Vertigo: Code(s): R42 - Dizziness and giddiness (2) Environmental allergies: Code(s): Z91.09 - Other allergy status, other than to drugs and biological substances (3) Postnasal drip: Code(s): R09.82 - Postnasal drip Plan Patient is a 48-year-old female came in today to talk about vertigo Patient says that she has a history of vertigo when she was young and recently started having vertigo again off and on with the movement She has not taken any medication yet for that I am sending meclizine with the patient she may take 1 as needed up to 2 times a day She also have allergies, Flonase nasal spray did help her I have sent a refill and she is also to start Zyrtec 10 mg [id number]-[id number] daily. Medications: New fluticasone propionate 50 mcg/actuation (Flonase Allergy Relief) administer into each nostril 1 spray intranasal DAILY 16 grams 1RF meclizine 25 mg PO BID PRN 30 tabs 0RF dizziness Coding Level of Care Code Est Pt Level 3 (80216) Diagnoses Vertigo R42 Environmental allergies Z91.09 Postnasal drip R09.82 Additional Codes OTTO-7 Assessment Billing - OTTO-7 Assessment Tool: OTTO-7 Assessment 91499 ([id number])
== END 2024-03-16 13:36 | disposition home or self-care (01) ==
PROVIDERS: PCP Internal Medicine; Visit Provider Internal Medicine
DX: R42 Dizziness and giddiness (principal); Z91.09 Other allergy status, other than to drugs and biological substances; R09.82 Postnasal drip

== ENCOUNTER → 2024-03-16 13:09 | Outpatient (BNVA) | payer OTHER, SELFPAY | PROVIDERS: PCP Internal Medicine; Visit Provider Internal Medicine | DX: R42 Dizziness and giddiness (principal); R09.82 Postnasal drip; Z91.09 Other allergy status, other than to drugs and biological substances | CPT/HCPCS: 96127 ==

== ENCOUNTER 2024-04-18 13:17 | Outpatient (AMB) | payer OTHER, SELFPAY ==
[2024-04-18 13:22] VITALS: BP 120/78; BMI 28.7
--- NOTE | 2024-04-18 13:22 | MHC.OFFVIS ---
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 No complaints. Last Pap/HPV was negative in 03/13 Last Mammogram was BI-RADS 1 in 05/14 No previous screening colonoscopy, the patient had a consult with GI last year decided to proceed with Cologuard instead of colonoscopy PFSH Surgical History H/O bilateral salpingectomy Hx of section Family History Mother Asthma Father Fibromyalgia Prostate cancer Maternal Aunt Breast cancer Social History Household Members: None Housing: House Alcohol intake: never Patient Tobacco Use Status: Former Tobacco user e-Cigarette/Vaping Use: Never Used Current occupational status: employed Current occupation: [employer] Sexual orientation: Straight/Heterosexual Gender identity: Female Cognitive needs: No Hearing needs: No Vision needs: Yes Female Reproductive History Menstrual Age of Menarche: 15 Date of last menstrual period: 07/09/23 control method: none Total pregnancies: 6 Full term: 4 Number of Living Children: 4 Ab spontaneous: 2 Date of last pap smear: 02/21/22 History of STI: Yes (Chlamydia (2000) HPV) Date of Mammogram: 04/27/23 History of abnormal mammogram: No Review of Systems Const All systems reviewed & are unremarkable except as noted in HPI and below Card Reports as per HPI Resp Reports as per HPI GI Reports as per HPI and Reports no additional complaints Reports as per HPI Physical Exam Vital Signs: Last Vital Signs BP 120/78 04/18/24 13:22 BMI result Body Mass Index 28.7 Const General: cooperative, healthy appearing and comfortable Chest Chest palpation & inspection: normal inspection of the chest and normal palpation of entire chest wall Breast/axilla inspection: normal inspection of the breasts and normal inspection of the axillae Breast/axilla palpation: normal palpation of the breasts, normal palpation of the axillae and no axillary lymphadenopathy Resp Effort & Inspection: normal respiratory effort Auscultation: clear to auscultation bilaterally Percussion: percussion normal Cardio Palpation: normal PMI Rate: regular rate Rhythm: regular rhythm Heart sounds: no murmurs and no rubs Peripheral pulses: Peripheral pulses 2+ throughout GI Inspection: Yes normal to inspection Palpation (GI): Soft to palpation, nontender, no guarding, not rigid and No hepatosplenomegaly present Percussion: Yes normal to percussion Auscultation: normal bowel sounds Rectal Exam - Female: deferred General: Yes bladder normal to palpation External Female Exam: No lesion Speculum Exam - Vagina: normal appearance of the vagina, normal palpation, normal vaginal discharge and not erythematous Speculum Exam - Cervix: normal appearance of the cervix and normal palpation Bimanual exam- vagina & uterus: normal bimanual exam, normal palpation, uterine size normal, bladder normal to palpation, consistency normal and normal palpation Bimanual Exam- Adnexa, other: normal adnexae, no masses and no tenderness Assessment & Plan Assessment & Plan (1) Well woman exam: Code(s): Z01.419 - Encounter for gynecological examination (general) (routine) without abnormal findings Category: Medical Plan: Cotesting not indicated this year. Mammogram schedule an 05/02/2024. Counseled the patient about the recommended dietary allowance of 1000 mg of Calcium & 600 IU of vitamin D. The patient was instructed to perform monthly self-breast exams and to schedule an annual exam in a year; All questions answered and the patient verbalized understanding. Instructed the patient to schedule annual exam in a year Coding Level of Care Code Est Pt Prev Care 40-64y(80412) Diagnoses Well woman exam Z01.419
== END 2024-04-18 13:49 | disposition home or self-care (01) ==
LOC: HO.HWS 13:18
PROVIDERS: PCP Internal Medicine; Visit Provider Obstetrics & Gynecology
DX: Z01.419 Encounter for gynecological examination (general) (routine) without abnormal findings (principal)
CPT/HCPCS: 99396

== ENCOUNTER → 2024-04-18 13:17 | Outpatient (BNVA) | payer OTHER, SELFPAY | PROVIDERS: PCP Internal Medicine; Visit Provider Obstetrics & Gynecology ==

== ENCOUNTER → 2024-05-02 15:30 | Outpatient (BNV) | payer OTHER, SELFPAY | PROVIDERS: PCP Internal Medicine; Visit Provider Internal Medicine | DX: Z12.31 Encounter for screening mammogram for malignant neoplasm of breast (principal) | CPT/HCPCS: 77063; 77067 ==

== ENCOUNTER 2024-05-02 15:40 | Outpatient (REF) | payer OTHER, SELFPAY ==
--- NOTE | ~2024-05-02 | MM_ITS ---
EXAMINATION: MM SCREENING DIGITAL BREAST TOMOSYNTHESIS, BILATERAL CLINICAL INFORMATION: Screening. Asymptomatic. COMPARISON: Mammography: Comparison is made with available priors TECHNIQUE: Digital breast mammography with tomosynthesis is performed in both the craniocaudal and mediolateral oblique views along with computer-aided detection (CAD). FINDINGS: There are scattered areas of fibroglandular density (ACR BI-RADS breast composition Category b). There are no significant masses, abnormal calcifications, or other abnormalities. MM/MM tomosynthesis screening BI IMPRESSION: No mammographic evidence of malignancy. ASSESSMENT: BI-RADS BI-RADS 1 - Negative RECOMMENDATION: Routine annual mammography screening. 1 year F/U This examination should not preclude the clinical evaluation of a suspicious palpable abnormality. This patient's information was entered into a reminder system with a target due date for their next mammogram. Electronically signed by: Nemo Romano DO 05/11/2024 12:07 PM NINO
== END 2024-05-02 15:41 | disposition home or self-care (01) ==
LOC: HO.MAMMO 15:40
PROVIDERS: PCP Internal Medicine; Visit Provider Internal Medicine
DX: Z12.31 Encounter for screening mammogram for malignant neoplasm of breast (principal)
CPT/HCPCS: 77063; 77067

== ENCOUNTER 2024-11-19 13:48 | Outpatient (AMB) | payer OTHER, SELFPAY ==
--- NOTE | 2024-11-19 13:48 | AM.OFFWIN_ITS ---
Intake Vital Signs 11/19/24 13:50 Height 5 ft 9 in Weight 193 lb BMI 28.5 BP 116/84 Blood Pressure Location Lt brachial Position Sitting Respiration 16 Pulse 68 Pulse Source Pulse Oximeter Temp 98.5 F Temp Source Oral Pulse Oximetry (%) 97 Oxygen Delivery Method Room Air Intake Visit Reasons: EP cough, chest burning Intake Note: Pt is here today c/o cough and chest burning sensation Patient Tobacco Use Status: Former Tobacco user Allergies acetaminophen [Tylenol-Codeine #3] Allergy (Unknown, Verified 11/19/24 13:56) vomiting codeine [Tylenol-Codeine #3] Allergy (Unknown, Verified 11/19/24 13:56) vomiting oxycodone [OXYCODONE] Adverse Reaction (Intermediate, Verified 11/19/24 13:56) VOMITING, feeling loopy From Tylenol-Codeine #3 Adverse Reaction (Intermediate, Uncoded 04/18/24 13:24) VOMITING Medication List - Last Reconciled 11/19/24 by PAUL Hickey- No Known Home Meds HPI HPI Comments History of Present Illness Details History of Present Illness - The patient is a 49-year-old female pr esenting with burning sensation in the chest and respiratory symptoms. - Symptoms began on Thursday with clear n ayala drainage, which has since turned to greenish discharge. - post nasal gtt - having burning sensation upon coughing . - Denies fever, chills, sore throat, ear pain. - Self-medicated with occo-fyu-ojalamy c ough suppressant without symptom relief. - Exposed to public at work ([employer]) Review of Systems - Respiratory: Reports burning chest sen sation, cough with colored discharge. Denies fever, chills. - ENT: Reports nasal drainage, denies so re throat. - General: Patient denies general fatigu e. Physical Exam Awake alert NAD Sclera and conjunctiva clear bilat Nares scant clear drainage, turbinates within normal limits, no sinus tenderness with palpation bilat TM intact and clear bilat MMM, pharynx WNL RRR LS CTAB Discussion Notes I discussed with the patient that her symptoms are consistent with a likely viral upper respiratory infection. The benefits of this discussion included understanding that antibiotics would not be appropriate due to the viral nature of the condition. I offered a prescription for Tessalon (benzonatate) to manage the cough, which the patient agreed to. I recommended she take time off work to rest and allow her symptoms to resolve, and informed her the symptoms should clear in a short period. She was advised to return if symptoms persist beyond ten days or if a fever develops. No further diagnostic tests are planned at this time. She is aware to follow up if exacerbation or persistence occurs beyond the advised period. Assessment and Plan 1. Upper Respiratory Infection (likely v iral) - Noted symptoms consistent with viral i nfection. - Prescribed Tessalon for cough relief. - Advised rest; provided work note. - Follow-up if persists >10 days or feve r. Patient Instructions - Take prescribed Tessalon as directed f or cough. - Rest and stay home from work to recove r. - If symptoms last longer than 10 days o r fever develops, return for follow-up. - Avoid mixing prescription with other c ough medicines. Consent Patient was informed and verbally consented to the use of an ambient scribe for clinic note documentation during this visit. [facility] Surgical History H/O bilateral salpingectomy Hx of section Family History Mother Asthma Father Fibromyalgia Prostate cancer Maternal Aunt Breast cancer Social History Household Members: None Housing: House Alcohol intake: never Patient Tobacco Use Status: Former Tobacco user e-Cigarette/Vaping Use: Never Used Current occupational status: employed Current occupation: [employer] Sexual orientation: Straight/Heterosexual Gender identity: Female Cognitive needs: No Hearing needs: No Vision needs: Yes Female Reproductive History Menstrual Age of Menarche: 15 Physical Exam Vital Signs: Last Vital Signs Temp 98.5 F 11/19/24 13:50 Pulse 68 11/19/24 13:50 Resp 16 11/19/24 13:50 BP 116/84 11/19/24 13:50 Pulse Ox 97 11/19/24 13:50 Oxygen Delivery Method Room Air 11/19/24 13:50 BMI result Body Mass Index 28.5 Assessment & Plan Assessment & Plan (1) Viral URI with cough: Code(s): J06.9 - Acute upper respiratory infection, unspecified Plan: / Plan , Medications: New benzonatate 100 mg PO TID 10 days PRN 30 caps 1RF cough Patient Instructions: Why aren't I getting antibiotics? I am so sick. I need them. I am empathetic that you're not feeling well & want you to recover quickly. The reason I have not prescribed antibiotics today is because I am an [employer]. What does that mean? It means that I am aiding in reducing Antimicrobial resistance (AMR). Antimicrobial resistance (AMR) is one of the top global public health and development threats. It is estimated that bacterial AMR was directly responsible for 1.27 million global deaths in 2019 and contributed to 4.95 million deaths. The misuse and overuse of antimicrobials in humans, animals and plants are the main drivers in the development of drug-resistant pathogens. Taking an antibiotic increases a patient?s chance of becoming colonized or infected with a resistant organism, and taking an antibiotic when not needed can lead to the development of antibiotic resistance. So the why... is because I care! Coding Level of Care Code Est Pt Level 3 (37710) Diagnoses Viral URI with cough J06.9
[2024-11-19 13:50] VITALS: BP 116/84; PULSE 68; RESP 16; TEMP 36.9; O2SAT 97; BMI 28.5
== END 2024-11-19 14:07 | disposition home or self-care (01) ==
PROVIDERS: PCP Internal Medicine; Visit Provider Nurse Practitioner Family
DX: J06.9 Acute upper respiratory infection, unspecified (principal)

== ENCOUNTER → 2024-11-19 13:48 | Outpatient (BNVA) | payer OTHER, SELFPAY | PROVIDERS: PCP Internal Medicine; Visit Provider Nurse Practitioner Family ==

== ENCOUNTER 2025-03-08 13:53 | Outpatient (AMB) | payer OTHER, SELFPAY ==
[2025-03-08 13:55] VITALS: BP 120/78; PULSE 69; O2SAT 98; BMI 29.2
--- NOTE | 2025-03-08 13:55 | MHC.PC.OV ---
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 Accompanied by: Self / Same As Patient Allergies acetaminophen (Tylenol-Codeine #3) Allergy (Unknown, Verified 03/08/25 13:55) vomiting codeine (Tylenol-Codeine #3) Allergy (Unknown, Verified 03/08/25 13:55) vomiting oxycodone (OXYCODONE) Adverse Reaction (Intermediate, Verified 03/08/25 13:55) VOMITING, feeling loopy From Tylenol-Codeine #3 Adverse Reaction (Intermediate, Uncoded 04/18/24 13:24) VOMITING Medication List - Last Reconciled 03/08/25 by Lala Banks MD No Known Home Meds Tobacco use date assessed: 03/08/25 Dental Screening Dental Screen Date: 03/08/25 Did you have a dental visit in the last 12 months?: Yes Did you have a dental problem in the last 6 months where you did not have access to dental care?: No Was dental information given to patient?: Patient has dentist HPI Annual PE HPI Details PE The patient is a 49-year-old female presenting for a wellness examination, with discussion of menopause and recent symptoms including episodic chest discomfort and dermatological concerns. Formal Menopause: - The patient reports menopause became official in June of this year. - She mentions feeling puffy and experiencing a sensation of swelling, which she attributes to hormonal changes. Osteoarthritis: - The patient has a familial history, possibly from her father. - Reports persistent bumps on fingers, attributed to possible osteoarthritis. - She describes episodic swelling in fingers. - There is crepitus in both knees, suspected from previous joint issues. - Reports a history of total meniscectomy on the right knee in 2017. Gastroesophageal Reflux Disease (GERD): - She reports episodic chest discomfort on the left side occurring intermittently for two weeks. - Recent episode was after consuming pizza, which she identified as causing heartburn. - She associates similar chest discomfort to prior reflux symptoms. - The patient denies consistent heartburn but reports episodic occurrences. Medical History: - Menopause declared official in June of this year. - Osteoarthritis with familial history - Occasional episodes of gastroesophageal reflux symptoms. Surgical History: - Total meniscectomy on the right knee, performed in 2017. Social History: - The patient is overweight with a BMI of 29.2 and is actively attempting to lose weight. - Reports changes in skincare routine, including natural product use. - Gastric discomfort possibly linked to dietary habits, specifically with certain foods like pizza. Health Maintenance - Last mammogram conducted in April of the previous year. 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 - Laboratory work was last completed in March of the previous year, new labs have been ordered including a fasting laboratory panel. Medications - The patient is not currently taking any medications. Diagnostic results - Completed EKG during visit showed no acute findings, results within normal limits. - Labs from the previous March revealed normal CBC, electrolytes, and intact kidney function. Patient Instructions - Visit a loft worker apprentice for skin checkup. - Perform fasting before getting the new lab work done. - Consider using nhnu-qrq-arpzmhf medication (e.g., Tums) for occasional heartburn or reflux symptoms. Review of Systems - General: No fever no chills - Neurological: No headaches no dizziness - Ear nose throat: No sore throat no hearing difficulty no ear pain - Cardiovascular: No syncope, no palpitations - Gastrointestinal: No nausea vomiting or diarrhea - Endocrine: No polyuria polydipsia no heat intolerance - Genitourinary: No dysuria - Skin: No new complaints Physical Exam General: Cooperative, healthy appearing, comfortable, no acute distress Orientation: Patient oriented x3 Head: Normal to inspection Ears: Within normal limit visually, crusty spot in the right ear noted Nose: Normal external nose present Face and sinus: Normal facial exam, pressure noted on the right side of the jaw Eyes: Appearance normal, extraocular movement intact pupils reactive Neck: Normal visual inspection and supple Respiratory: Normal respiratory effort and able to speak in complete sentences. Clear to auscultation, no stridor Cardiovascular: S1 and S2 RRR, EKG within normal limit, no acute findings GI: Normal to inspection. Soft to palpation and nontender Skin: Turgor normal Neuro: Patient oriented x3, motor sensory intact, balance intact, tandem pass Extremities: Normal to inspection, crepitus in both knees, ROM intact PFSH Surgical History H/O bilateral salpingectomy Hx of section Family History Mother Asthma Father Fibromyalgia Prostate cancer Maternal Aunt Breast cancer Social History Household Members: None Housing: House Alcohol intake: never Patient Tobacco Use Status: Former Tobacco user e-Cigarette/Vaping Use: Never Used Current occupational status: employed Current occupation: [employer] Sexual orientation: Straight/Heterosexual Gender identity: Female Cognitive needs: No Hearing needs: No Vision needs: Yes Female Reproductive History Menstrual Age of Menarche: 15 Questionnaire PHQ-9 Over the last 2 weeks, how often have you been bothered by any of the following problems? 1. Little interest or pleasure in doing things: not at all 2. Feeling down, depressed, or hopeless: not at all 3. Trouble falling or staying asleep, or sleeping too much: not at all 4. Feeling tired or having little energy: not at all 5. Poor appetite or overeating: not at all 6. Feeling bad about yourself - or that you are a failure or have let yourself or your family down: not at all 7. Trouble concentrating on things, such as reading the newspaper or watching television: not at all 8. Moving or speaking so slowly that other people could have noticed. Or the opposite - being so fidgety or restless that you have been moving around a lot more than usual: not at all 9. Thoughts that you would be better off or of hurting yourself in some way: not at all Total score: 0 Depression Screening Interpretation: Negative Depression Screening Done: Yes 15093 - PHQ-9 Billing: Yes Source: Developed by Drs. Leo Burdick, Autumn King, Eliseo Bryant and colleagues, with an educational christina from [employer]. Thrive Questionnaire Date Thrive assessed: 03/05/25 I am a: Patient What is your living situation today?: I have a steady place to live Within the past 12 months, did the food you bought not last and you didn't have the money to get more?: Never true Within the past 12 months, did you worry whether your food would run out before you got money to buy more?: Never true Do you have trouble paying for medicines?: No Do you have trouble getting transportation to medical appointments?: No Do you have trouble paying your heating and electricity bill?: No Do you have trouble taking care of your child, family member or friend?: No Do you have trouble with day-to-day activities such as bathing, preparing meals, shopping, managing finances, etc.?: No Are you currently unemployed and looking for a job?: No Are you interested in more education?: No Please select the resources that you would like help with: None Currently or been in a relationship where the following occur: No concerns reported THRIVE Score: 0 AUDIT C Alcohol Use Questionnaire (AUDIT-C) 1. How often do you have a drink containing alcohol?: Monthly or less 3. How often do you have six or more drinks on one occasion?: Never Total Score: 1 OTTO-7 AMB Questionnaire OTTO-7 Date OTTO - 7 assessed: 03/08/25 Feeling nervous, anxious, or on edge: 0 = Not at all Not being able to stop or control worryin = Not at all Worrying too much about different things: 0 = Not at all Trouble relaxin = Not at all Being so restless that it is hard to sit still: 0 = Not at all Becoming easily annoyed or irritable: 0 = Not at all Feeling afraid as if something awful might happen: 0 = Not at all Total OTTO-7 score (0-4 normal; 5-9 mild; 10-14 moderate; 15-21 severe): 0 Source: Developed by Drs. Leo Burdick, Autumn King, Eliseo Bryant and colleagues, with an educational christina from [employer]. OTTO-7 Assessment Billing OTTO-7 Assessment Tool: OTTO-7 Assessment 79070 Physical exam (Primary Care) Vital Signs: Last Vital Signs Pulse 69 03/08/25 13:55 BP 120/78 03/08/25 13:55 Pulse Ox 98 03/08/25 13:55 BMI result Body Mass Index 29.2 Tobacco/Smoking Status: Tobacco use Status Tobacco use date assessed 03/08/25 03/08/25 13:56 Patient Tobacco Use Status Former Tobacco user 03/08/25 13:56 e-Cigarette/Vaping Use Never Used 03/08/25 13:56 PHQ-9: PHQ-9 Score PHQ-9: Total score 0 03/08/25 16:24 Depression Screening Interpretation: Negative Thrive Assessment: Date of Thrive Assessment Date Thrive assessed 03/05/25 03/08/25 13:56 Currently or been in a relationship where the following occur: No concerns reported Office Procedures EKG 67896-Npwdewurcbqqiabht, Complete Flu Questionnaire Does the patient have a severe egg allergy?: No Does the patient have severe life threatening allergies?: No Does the patient have a fever or illness today?: No Has the patient ever had Guillain-Hancock Syndrome?: No Has the patient ever had any past reaction to a flu shot?: No Immunizations Fluarix 0650-0031 (PF) 45 mcg (15 mcg x 3)/0.5 mL IM syringe Performing Provider: Lala Banks MD [place] [facility] [place] [facility] Administered by: Kirk Murcia CMA on 03/08/25 16:24 Dose Route Admin Location Dispensed Lot Number Expiration Date [facility] Assistant Department Manager 0.5 mL IM Left Deltoid 0.5 mL [id number] 12/19/25 [id number] Typeform VIS Given Date VIS Provided VIS Publication Date 03/08/25 Single Vaccine 24 Eligibility Eligibility Date Funding Source Not [place] Eligible 03/08/25 Private Coding Level of Care Code Est Pt Level 4 (05241) Est Pt Prev Care 40-64y(14863) Diagnoses Encounter for general adult medical examination with abnormal findings Z00.01 Other chest pain R07.89 Chest pain type: other chest pain Environmental allergies Z91.09 Overweight (BMI 25.0-29.9) E66.3 Crepitus of both knee joints M23.8X1; M23.8X2 Skin cancer screening Z12.83 CPT Codes EKG - CPT: 57570-Cblkjvbammibsejcq, Complete ([id number]) Additional Codes OTTO-7 Assessment Billing - OTTO-7 Assessment Tool: OTTO-7 Assessment 49810 ([id number]) PHQ-9 - 54252 - PHQ-9 Billing: Yes ([id number]) Assessment & Plan Assessment & Plan (1) Encounter for general adult medical examination with abnormal findings: Code(s): Z00.01 - Encounter for general adult medical examination with abnormal findings Category: Medical (2) Chest pain: Code(s): R07.9 - Chest pain, unspecified Category: Medical Qualifiers: Chest pain type: other chest pain Qualified Code(s): R07.89 - Other chest pain (3) Environmental allergies: Code(s): Z91.09 - Other allergy status, other than to drugs and biological substances Category: Medical (4) Overweight (BMI 25.0-29.9): Code(s): E66.3 - Overweight Category: Medical (5) Crepitus of both knee joints: Code(s): M23.8X1 - Other internal derangements of right knee; M23.8X2 - Other internal derangements of left knee Category: Medical (6) Skin cancer screening: Code(s): Z12.83 - Encounter for screening for malignant neoplasm of skin Category: Medical Plan PE The patient is a 49-year-old female presenting for a wellness examination, with discussion of menopause and recent symptoms including episodic chest discomfort and dermatological concerns. Formal Menopause: - The patient reports menopause became official in June of this year. - She mentions feeling puffy and experiencing a sensation of swelling, which she attributes to hormonal changes. Osteoarthritis: - The patient has a familial history, possibly from her father. - Reports persistent bumps on fingers, attributed to possible osteoarthritis. - She describes episodic swelling in fingers. - There is crepitus in both knees, suspected from previous joint issues. - Reports a history of total meniscectomy on the right knee in 2017. Gastroesophageal Reflux Disease (GERD): - She reports episodic chest discomfort on the left side occurring intermittently for two weeks. - Recent episode was after consuming pizza, which she identified as causing heartburn. - She associates similar chest discomfort to prior reflux symptoms. - The patient denies consistent heartburn but reports episodic occurrences. Medical History: - Menopause declared official in June of this year. - Osteoarthritis with familial history - Occasional episodes of gastroesophageal reflux symptoms. Surgical History: - Total meniscectomy on the right knee, performed in 2017. Social History: - The patient is overweight with a BMI of 29.2 and is actively attempting to lose weight. - Reports changes in skincare routine, including natural product use. - Gastric discomfort possibly linked to dietary habits, specifically with certain foods like pizza. Health Maintenance - Last mammogram conducted in April of the previous year. 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 - Laboratory work was last completed in March of the previous year, new labs have been ordered including a fasting laboratory panel. Medications - The patient is not currently taking any medications. Diagnostic results - Completed EKG during visit showed no acute findings, results within normal limits. - Labs from the previous March revealed normal CBC, electrolytes, and intact kidney function. Patient Instructions - Visit a loft worker apprentice for skin checkup. - Perform fasting before getting the new lab work done. - Consider using blym-jtq-zjnpnhy medication (e.g., Tums) for occasional heartburn or reflux symptoms. Orders: Orders Comprehensive [place]. Panel Fast 03/08/25 R07.9 - Chest pain, unspecified Complete Blood Count Auto Diff 03/08/25 E66.3 - Overweight, M23.8X1 - Other internal derangements of right knee, M23.8X2 - Other internal derangements of left knee, R07.9 - Chest pain, unspecified, Z91.09 - Other allergy status, other than to drugs and biological substances Lipid Panel 03/08/25 R07.9 - Chest pain, unspecified Vitamin D 25-OH (D2 and D3) 03/08/25 R07.9 - Chest pain, unspecified TSH reflex Free T4 03/08/25 R07.9 - Chest pain, unspecified Influenza [id number] Immunization 03/08/25 Z23 - Encounter for immunization Referrals Dermatology Referral Z12.83 - Encounter for screening for malignant neoplasm of skin
--- OUTSIDE RECORDS SUMMARY | 2025-03-08 17:33 | XMS_ITS | Clinical Summary ---
Author Organization [facility] Address [address] [place], [place] [id number] Phone Care Team Providers Care Tool Filer Hand Name Role Phone Lala Banks MD Primary Care Provider [phone] Allergies Active Allergy Reactions Criticality Noted Date Comments Acetaminophen 05/04/2006 Acetaminophen-Codeine 10/17/2005 Codeine 08/13/2005 Medications therapeutic multivitamin tablet Take 1 tablet by mouth daily. Active Active Problems Problem Noted Date Diagnosed Date Posterior tibial tendon dysfunction, right 11/07 Social History Tobacco Use Types Packs/Day Years Used Date Smoking Tobacco: Never Smokeless Tobacco: Never Education Answer Date Recorded Are you interested in more education? Not on rut e 10/22/2022 Are you concerned about learning? Not on file 10/22/2022 No 10/22/2022 No 10/22/2022 Digital Access Answer Date Recorded No 11/15/2022 No 11/15/2022 No 11/15/2022 Reliable internet access at home? Not on file 11/15/2022 Device with a working camera? Not on file Comments Unknown Sex and Gender Information Value Date Recorded Sex Assigned at Not on file Legal Sex Female 3:26 PM EDT Gender Identity Not on file Sexual Orientation Not on file Last Filed Vital Signs Vital Sign Reading Time Taken Comments Blood Pressure - - Pulse - - Temperature - - Respiratory Rate - - Oxygen Saturation - - Inhaled Oxygen Concentration - - Weight 89.8 kg (198 lb) 11/07/2022 1:05 PM EDT Height 175.3 cm (5' 9 ) 11/07/2022 1:05 PM EDT Body Mass Index 29.24 11/07/2022 1:05 PM EDT Plan of Treatment Health Maintenance Due Date Last Done Comments Adult Td,Tdap Booster 1975 LIPID PANEL 1975 DEPRESSION SCREENING 1987 HEPATITIS C SCREENING 1993 HIV ONE-TIME SCREENING (18-6 5 YEARS) 1993 PAP SMEAR 1996 SMOKING STATUS SCREENING (On ce After 26 Yrs) 2001 SCREENING FOR DIABETES 2010 MAMMOGRAM 2015 COLOGUARD 2020 COLONOSCOPY 2020 COLORECTAL CANCER SCREENING 2020 FIT TEST 2020 FOBT 2020 SIGMOIDOSCOPY 2020 VIRTUAL COLONOSCOPY 2020 INFLUENZA VACCINE (#1) 2025 COVID-19 VACCINE ( - 2023-2 5 season) 2025 HEPATITIS A VACCINES Aged Out No long er eligible based on patient's age to complete this topic HIB VACCINES Aged Out No longer eligi ble based on patient's age to complete this topic MENINGOCOCCAL VACCINES (ACWY) Aged Out No longer eligible based on patient's age to complete this topic MENINGOCOCCAL VACCINES (B) Aged Out N o longer eligible based on patient's age to complete this topic PNEUMOCOCCAL VACCINES (0-49 years) Aged Out No longer eligible based on patient's age to complete this topic Medical Devices Not on file [place] [address] [address] [place] [address] HMO IRA [facility] NET PARTIAL [facility] HMO Member Subscriber Plan / Payer (Ef fective 2022-Present) Name:Finley, Ramona Relation to Subscriber:Self Name:Finley, Ramona Payer ID:Not on file Type:O Address: [address] SAFETY NET PARTIAL [facility] HMO Member Subscriber Plan / Payer (Ef fective 2022-Present) Name:Ramona Finley Relation to Subscriber:Self Name:Ramona Finley Payer ID:Not on file Type:HMO Address: [address] SAFETY NET PARTIAL [facility] HMO Member Subscriber Plan / Payer (Ef fective 2022-Present) Name:Ramona Finley Relation to Subscriber:Self Name:Tushar Ramona Payer ID:Not on file Type:[employer] Address: [address] NET PARTIAL [facility] HMO Member Subscriber Plan / Payer (Ef fective 2022-Present) Name:Ramona Finley Relation to Subscriber:Self Name:Ramona Finley Payer ID:Not on file Type:HMO Address: [address] SAFETY NET PARTIAL [facility] HMO IRA [facility] NET PARTIAL Care Teams Tool Filer Hand Relationship Specialty Start Date End Date Lala Banks MD [address] [place] [id number] PCP - General 10/17/22 Additional Source Comments The information contained in this document represents components of the legal health record. It is not the complete legal health record.[facility]
== END 2025-03-08 14:43 | disposition home or self-care (01) ==
LOC: HO.HMCC 13:54
PROVIDERS: PCP Internal Medicine; Visit Provider Internal Medicine
DX: Z23 Encounter for immunization (principal)

== ENCOUNTER → 2025-03-08 13:53 | Outpatient (BNVA) | payer OTHER, SELFPAY | PROVIDERS: PCP Internal Medicine; Visit Provider Internal Medicine | DX: Z00.01 Encounter for general adult medical examination with abnormal findings (principal); K21.9 Gastro-esophageal reflux disease without esophagitis; R07.89 Other chest pain; M23.8X1 Other internal derangements of right knee; M23.8X2 Other internal derangements of left knee; E66.3 Overweight; Z23 Encounter for immunization; Z91.09 Other allergy status, other than to drugs and biological substances; Z68.29 Body mass index [BMI] 29.0-29.9, adult | CPT/HCPCS: 90471; 90656; 93005; 96127 ==

== ENCOUNTER 2025-04-24 14:38 | Outpatient (AMB) | payer OTHER, SELFPAY ==
--- NOTE | 2025-04-24 14:47 | A.OFFVIS_ITS ---
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 No complaints. Last Pap/HPV was negative in 03/13 Last Mammogram was BI-RADS 1 in 05/15 The patient met with GI last year who recommended Cologuard every 3 years last years: Heart was negative PFSH Surgical History H/O bilateral salpingectomy Hx of section Family History Mother Asthma Father Fibromyalgia Prostate cancer Maternal Aunt Breast cancer Social History Household Members: None Housing: House Alcohol intake: never Patient Tobacco Use Status: Former Tobacco user e-Cigarette/Vaping Use: Never Used Current occupational status: employed Current occupation: [employer] Sexual orientation: Straight/Heterosexual Gender identity: Female Cognitive needs: No Hearing needs: No Vision needs: Yes Female Reproductive History Menstrual Age of Menarche: 15 Date of last pap smear: 02/21/22 Date of Mammogram: 05/02/24 Review of Systems Const All systems reviewed & are unremarkable except as noted in HPI and below Card Reports as per HPI Resp Reports as per HPI GI Reports as per HPI and Reports no additional complaints Reports as per HPI Physical Exam Vital Signs: Last Vital Signs BP 110/70 04/24/25 14:50 BMI result Body Mass Index 28.8 Const General: cooperative, healthy appearing and comfortable Chest Chest palpation & inspection: normal inspection of the chest and normal palpation of entire chest wall Breast/axilla inspection: normal inspection of the breasts and normal inspection of the axillae Breast/axilla palpation: normal palpation of the breasts, normal palpation of the axillae and no axillary lymphadenopathy Resp Effort & Inspection: normal respiratory effort Auscultation: clear to auscultation bilaterally Percussion: percussion normal Cardio Palpation: normal PMI Rate: regular rate Rhythm: regular rhythm Heart sounds: no murmurs and no rubs Peripheral pulses: Peripheral pulses 2+ throughout GI Inspection: Yes normal to inspection Palpation (GI): Soft to palpation, nontender, no guarding, not rigid and No hepatosplenomegaly present Percussion: Yes normal to percussion Auscultation: normal bowel sounds Rectal Exam - Female: deferred General: Yes bladder normal to palpation External Female Exam: No lesion Speculum Exam - Vagina: normal appearance of the vagina, normal palpation, normal vaginal discharge and not erythematous Speculum Exam - Cervix: normal appearance of the cervix and normal palpation Bimanual exam- vagina & uterus: normal bimanual exam, normal palpation, uterine size normal, bladder normal to palpation, consistency normal and normal palpation Bimanual Exam- Adnexa, other: normal adnexae, no masses and no tenderness Assessment & Plan Assessment & Plan (1) Well woman exam: Code(s): Z01.419 - Encounter for gynecological examination (general) (routine) without abnormal findings Category: Medical Plan: Co testing done. Counseled the patient about the recommended dietary allowance of 1200 mg of Calcium & 600 IU of vitamin D. Mammogram ordered. The patient was instructed to perform monthly self-breast exams and schedule annual exam in a year. All questions answered and the patient verbalized understanding. Orders: Orders MM tomosynthesis screening BI Today Z12.31 - Encounter for screening mammogram for malignant neoplasm of breast Coding Level of Care Code Est Pt Prev Care 40-64y(36668) Diagnoses Well woman exam Z01.419
[2025-04-24 14:50] VITALS: BP 110/70; BMI 28.8
== END 2025-04-24 15:31 | disposition home or self-care (01) ==
LOC: HO.HWS 14:39
PROVIDERS: PCP Internal Medicine; Visit Provider Obstetrics & Gynecology
DX: Z01.419 Encounter for gynecological examination (general) (routine) without abnormal findings (principal)
CPT/HCPCS: 99396; 99459